=== PATIENT | male | born 1940 | race Two or more races ===

== ENCOUNTER → 2016-10-11 | Outpatient (CLI) | payer OTHER ==
--- NOTE | ~2016-10-11 | US77 ---
[facility] A Service of [facility] RADIOLOGY TEXT RESULTS PATIENT: KIRILL WAGNER LOCATION: [facility] : 44 UNIT #: [id number] AGE: [address]: Jimbo Quezada MD SEX: M ORDER DR: [id number] [facility] [address] [place] [address] [place], [place] [address] [id number] O MR#: [id number] Acc #: [id number] NAME: KIRILL WAGNER : 1940 SEX: M STUDY DATE/TIME: 10/11/2016 16:20 UNIT: [facility] ROOM: STUDY DESCRIPTION: US Kidney Bilateral Complete Attending Physician: Jimbo Quezada M.D. Referring Physician: Jimbo Quezada M.D. Ordering Physician: Jimbo Quezada M.D. Primary Care Physician: Vldaimir Jefferson M.D. MEDICAL IMAGING REPORT This report is preliminary unless electronic signature is present EXAM Bilateral renal ultrasound complete 10/11/2016 HISTORY Chronic kidney disease stage III, hypertension and hyperlipidemia, follow up. FINDINGS The right kidney measures 10.6 cm while the left kidney measures 10.9 cm in longitudinal dimensions. There is no evidence of hydronephrosis or nephrolithiasis. There is a 3.2 cm cyst on the left kidney. No solid mass lesions are identified. There is normal renal cortical echogenicity. Images of the bladder are normal. IMPRESSION 1. Left renal cyst. Otherwise negative renal ultrasound. 2. Images of the bladder are normal. Dictated by... Shreyas Piper M.D. THIS IS AN ELECTRONICALLY VERIFIED REPORT Shreyas Piper M.D. at 10/12/2016 3:59 PM CLIFFORD/dane TD: 10/12/2016 09:18 JOB #: [id number] MEDICAL IMAGING REPORT Page 1 of 1 COPY
[2016-10-11 16:12] LABS: MEAN CELL VOLUME 89.7 FL (83-96); MEAN CORPUSCULAR HEMOGLOBIN 30.6 PG (28-34); MEAN CORPUSCULAR HGB CONC 34.1 g/dL (30-36); MEAN PLATELET VOLUME 7.9 FL (6.5-11.5); RED BLOOD COUNT 4.57 X10e (3.90-5.60); RED CELL DISTRIBUTION WIDTH 15.7 % (11.0-15.5); WHITE BLOOD COUNT 6.2 X10e3 (4.0-10.5)
[2016-10-11 16:15] LABS: URINE APPEARANCE CLEAR; URINE BILIRUBIN NEG (NEG); URINE BLOOD NEG (NEG); URINE COLOR YELLOW; URINE GLUCOSE NEG (NEG); URINE KETONE TRACE (NEG); URINE LEUKOCYTE ESTERASE 1+ (NEG); URINE NITRATE NEG (NEG); URINE PH 6.5 (5-8); URINE PROTEIN NEG (NEG); URINE SPECIFIC GRAVITY 1.024 (1.003-1.035); URINE UROBILINOGEN 0.2 MG/DL (NEG)
[2016-10-11 16:18] LABS: URBCS1 AUWI 0-2 /[HPF] (0-2); URINE BACTERIA AUWI 2+ (NEGATIVE); URINE SQUAMOUS EPITHELIAL CELL OCC /[HPF]
[2016-10-11 16:27] LABS: CREATININE,RANDOM URINE 190 mg/dL; TOTAL PROTEIN,RANDOM URINE 13 mg/dl (<10)
[2016-10-11 17:27] LABS: ALBUMIN SERUM 4.5 g/dL (3.5-5.0); BILIRUBIN,TOTAL 0.4 mg/dL (0.2-2.0); BUN/CREATININE RATIO 20.76; CALCIUM SERUM 9.7 mg/dL (8.4-10.2); CREATININE SERUM 1.3 mg/dL (0.6-1.4); GLOM FILT RATE Estimated 53.8 mL/min (>60); PHOSPHOROUS 2.6 mg/dL (2.5-4.6); POTASSIUM 4.2 mmol/L (3.5-5.1); URIC ACID 4.8 mg/dL (2.6-7.2)
[2016-10-15 21:32] LABS: CALCIUM (PTHINTACT) 9.8 mg/dL (8.6-10.3); SPE A1GLOB (PNL) 0.3 g/dL (0.2-0.3); SPE A2GLOB (PNL) 0.7 g/dL (0.5-0.9); SPE ALB (PNL) 4.3 g/dL (3.8-4.8); SPE BETA 1 GLOBULIN 0.5 g/dL (0.4-0.6); SPE BETA 2 GLOBULIN 0.5 g/dL (0.2-0.5); SPE GAMMA (PNL) 1.2 g/dL (0.8-1.7); SPETP (PNL) 7.5 g/dL (6.1-8.1)
== END | disposition home or self-care (01) ==
LOC: CGUS 15:32
PROVIDERS: Internal Medicine Nephrology
DX: N18.3 Chronic kidney disease, stage 3 (moderate) (principal); N28.1 Cyst of kidney, acquired
CPT/HCPCS: 36415; 76770; 80053; 81003; 82310; 82570; 83735; 83883; 83970; 84100; 84156; 84165; 84550; 85027; 86334